=== PATIENT | female | born 2000 | race African-American/Black ===

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

== ENCOUNTER 2019-04-03 12:36 | Emergency (ER) | payer OTHER, SELFPAY ==
[~2019-04-03] VITALS: Ht 162.6 cm; Wt 49.3 kg
[2019-04-03] MEDS ORDERED: NEXP1IMP (12:45)
[2019-04-03] MEDS ORDERED: MACR100C43 PO (14:37)
[2019-04-03 14:48] VITALS: BP 121/65
== END 2019-04-03 14:49 | disposition home or self-care (01) ==
LOC: M ED 12:36
DX: N39.0 Urinary tract infection, site not specified (principal); Z88.0 Allergy status to penicillin; Z79.3 Long term (current) use of hormonal contraceptives; Z79.899 Other long term (current) drug therapy

== ENCOUNTER 2019-04-15 10:04 | Emergency (ER) | payer OTHER ==
[~2019-04-15] VITALS: Ht 162.6 cm; Wt 49.2 kg
[~2019-04-15 10:04] MED LIST changes: +MACR100C43 PO; +NEXP1IMP
[2019-04-15] MEDS ORDERED: KETOROLAC TROMETHAMINE 10 MG TAB PO ONE (12:15)
[2019-04-15] MEDS ORDERED: diazePAM 5 MG TAB PO ONE (12:15)
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
--- NOTE | 2019-04-15 13:20 | REP ---
Left shoulder three views : There is no fracture or dislocation. Mineralization and joint spaces are normal. There are no calcifications or foreign bodies. Impression: Negative left shoulder . Electronically Signed by Davey Hernandez MD 04/15/2019 01:11 P
--- NOTE | 2019-04-15 13:22 | REP ---
Right knee five the : There is no fracture or dislocation. Mineralization and joint spaces are normal. There are no calcifications or foreign bodies. There is no effusion. Impression: Negative Right knee . Electronically Signed by Davey Hernandez MD 04/15/2019 01:13 P
[2019-04-15] MEDS ORDERED: CYCL5TAB PO (13:37)
[2019-04-15 13:58] VITALS: BP 106/67
== END 2019-04-15 14:10 | disposition home or self-care (01) ==
LOC: M ED 10:04
DX: S80.01XA Contusion of right knee, initial encounter (principal); S49.92XA Unspecified injury of left shoulder and upper arm, initial encounter; M62.838 Other muscle spasm; Y04.0XXA Assault by unarmed brawl or fight, initial encounter; Y92.019 Unspecified place in single-family (private) house as the place of occurrence of the external cause; Y07.01 Husband, perpetrator of maltreatment and neglect; J45.909 Unspecified asthma, uncomplicated; R56.9 Unspecified convulsions; Z88.0 Allergy status to penicillin; Z79.899 Other long term (current) drug therapy

== ENCOUNTER 2019-11-03 23:46 | Emergency (ER) | payer OTHER ==
[2019-11-04 00:12] VITALS: BP 118/67
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
== END 2019-11-04 20:34 | disposition home or self-care (01) ==
LOC: EDBD 23:46 → M ED 23:46
DX: S00.93XA Contusion of unspecified part of head, initial encounter (principal); S50.01XA Contusion of right elbow, initial encounter; S80.11XA Contusion of right lower leg, initial encounter; Y04.8XXA Assault by other bodily force, initial encounter; Y92.019 Unspecified place in single-family (private) house as the place of occurrence of the external cause; R56.9 Unspecified convulsions; Z88.0 Allergy status to penicillin; Z79.899 Other long term (current) drug therapy

== ENCOUNTER 2019-11-25 10:04 | Emergency (ER) | payer OTHER ==
[~2019-11-25] VITALS: Ht 165.1 cm; Wt 50.5 kg
[2019-11-25] MEDS ORDERED: TRIAMCINOLONE ACET 0.1% OINTMENT 15 GM TOP ONE (11:00)
[2019-11-25] MEDS ORDERED: dexameTHASONE 20MG/5ML VIAL (J1100 PER 1MG) IM ONE (11:00)
--- NOTE | 2019-11-25 12:06 | REPVR ---
PROCEDURE INFORMATION: Exam: US Abdomen; Limited Exam date and time: 11/25/2019 11:32 AM Age: 19 years old Clinical indication: Abdominal pain; Periumbilical; Additional info: Pain/tenderness to umbilicus R/O hernia. Umbilicus is raised and discolored TECHNIQUE: Imaging protocol: US abdomen. Real time ultrasound with image documentation. Limited exam focused on the region of clinical interest. COMPARISON: None provided. FINDINGS: Soft tissues: No abdominal wall defect or herniation was identified in the region of the umbilicus. IMPRESSION: No umbilical hernia identified. May consider better characterization of the soft tissues with contrast-enhanced CT as clinically appropriate. Electronically signed by: Dago Martines On 11/25/2019 12:06:02 PM
[2019-11-25] MEDS ORDERED: TRIA1OI80 TOP (12:23)
[2019-11-25] MEDS ORDERED: MEDR4PAK PO (12:23)
[2019-11-25 12:32] VITALS: BP 117/70
== END 2019-11-25 12:38 | disposition home or self-care (01) ==
LOC: M ED 10:04
DX: R21 Rash and other nonspecific skin eruption (principal); Z88.0 Allergy status to penicillin; Z79.899 Other long term (current) drug therapy
CPT/HCPCS: 76705; 81001; 87086; 96372; 99283; J1100

== ENCOUNTER → 2020-01-14 | Outpatient (REF) | payer OTHER, SELFPAY ==
[~2020-01-14] MED LIST changes: +MEDR4PAK PO; +TRIA1OI80 TOP
== END ==
LOC: M LAB REF 18:58
PROVIDERS: ATTEND Physician Assistant
DX: D48.5 Neoplasm of uncertain behavior of skin (principal)

== ENCOUNTER 2020-01-26 11:41 | Observation (INO) | payer OTHER, SELFPAY ==
[~2020-01-26] VITALS: Ht 160 cm; Wt 53.5 kg
[2020-01-26 12:15] LABS: BASO % 0.5 % (0.0-1.0); EOS # 0.1 10^3/uL (0.0-0.5); EOS % 1.6 % (0.0-3.0); HEMATOCRIT 39.8 % (36.0-47.0); HEMOGLOBIN 12.5 g/dl (12.0-15.5); LYMPH # 1.9 10^3/uL (1.5-5.0); LYMPH % 48.3 % (24.0-44.0); MEAN CORPUSCULAR HGB CONC 31.4 g/dl (32.0-36.5); MONO # 0.3 10^3/uL (0.0-0.8); NEUTROPHILS # 1.6 10^3/uL (1.5-8.5); NEUTROPHILS % 41.3 % (36.0-66.0); PLATELET COUNT, AUTOMATED 193 10^3/uL (150-450); RED BLOOD COUNT 4.47 10^6/uL (4.00-5.40); WHITE BLOOD COUNT 3.9 10^3/uL (4.0-10.0)
[2020-01-26] MEDS ORDERED: HYDR200T3 PO (12:19)
[2020-01-26 12:37] LABS: HCG, SERUM QUALITATIVE NEGATIVE (NEGATIVE)
[2020-01-26 13:26] LABS: CPK CREATINE PHOSPHOKINASE 139 U/L (26-192); ETHYL ALCOHOL (ETHANOL) < 0.003 % (0.000-0.010)
[2020-01-26 14:36] LABS: AMPHETAMINES LEVEL URINE NEGATIVE (NEGATIVE); BARBITURATES URINE NEGATIVE (NEGATIVE); BENZODIAZEPINES URINE NEGATIVE (NEGATIVE); CANNABINOIDS URINE POSITIVE (NEGATIVE); COCAINE METABOLITE URINE NEGATIVE (NEGATIVE); METHADONE URINE NEGATIVE (NEGATIVE); OPIATES URINE NEGATIVE (NEGATIVE); PHENCYCLIDINE URINE NEGATIVE (NEGATIVE)
[2020-01-26] MEDS ORDERED: NS 1,000 ML IV ONE (17:00)
[2020-01-26] MEDS ORDERED: ACETAMINOPHEN TAB 650MG DOSE (2X325MG) PO ONE (17:00)
--- NOTE | 2020-01-26 17:27 | REPVR ---
PROCEDURE INFORMATION: Exam: CT Head Without Contrast Exam date and time: 01/26/2020 5:10 PM Age: 19 years old Clinical indication: Syncope and collapse TECHNIQUE: Imaging protocol: Computed tomography of the head without contrast. Radiation optimization: All CT scans at this facility use at least one of these dose optimization techniques: automated exposure control; mA and/or kV adjustment per patient size (includes targeted exams where dose is matched to clinical indication); or iterative reconstruction. COMPARISON: CT Head without contrast 11/04/2019 12:51 AM FINDINGS: Brain: No mass, mass effect, parenchymal hemorrhage, or evidence of large acute infarct. No asymmetric sulcal effacement or loss of the harper-white interface. No extra-axial hemorrhage. Cerebral ventricles: There is no hydrocephalus. Basal cisterns are patent. No midline shift. Bones/joints: Unremarkable. No acute fracture. Paranasal sinuses: Visualized sinuses are unremarkable. No fluid levels. Mastoid air cells: Visualized mastoid air cells are well aerated. Soft tissues: Unremarkable. IMPRESSION: No acute intracranial abnormality. Electronically signed by: Funmilayo Solorzano On 01/26/2020 17:26:57 PM
[2020-01-26] MEDS ORDERED: NS 1,000 ML IV SCH (17:30)
--- NOTE | 2020-01-26 17:34 | HPEPDOC ---
[facility] Medical History & Physical Date of Admission Jan 26, 2020 Date of Service: Jan 26, 2020 History and Physical CHIEF COMPLAINT: SYNCOPE HISTORY OF PRESENT ILLNESS: 19F presents for possible syncopal episode occurred today while at [employer]. She stated she was sitting down, fell dizzy, then slouched over and fell down with possible head trauma. She had a typical evening the night before, and a typical morning. History goes back about one week with new medications she had been receiving for her rash/lichen planus, most recently started on Plaquenil 4 days ago. She feels that since this medication started, she has not been feeling well, with no specific details. She denies any other medical complaints. She denies chest pain, shortness of breath, headaches, N/V/D. PAST MEDICAL HISTORY: #lichen planus ALLERGIES: Please see below. REVIEW OF SYSTEMS: Negative except as per HPI. HOME MEDICATIONS: Please see below. PHYSICAL EXAMINATION: VITAL SIGNS: See below General: NAD, lying comfortably in bed, diffuse rash HEENT: NC/AT Lungs: CTA B/L Heart: +S1S2, RRR Abd: soft, NT, +BS Ext: no edema LABORATORY DATA: See below. MICROBIOLOGY: Please see below. A/P: 19F for possible syncopal episode, likely secondary to medications, no past medical history. #possible syncope - monitor on telemetry - IV fluids - discussed with dermatology regarding her treatment meds for lichen planus - ok to resume plaquenil, d/c remainder #lichen planus - as per derm #DVT prophylaxis - not indicated Vital Signs Vital Signs Date Time Temp Pulse Resp B/P (MAP) Pulse Ox O2 Delivery O2 Flow Rate FiO2 01/26/20 14:15 74 14 111/60 (77) 100 Room Air 01/26/20 11:52 98.2 Laboratory Data Labs 24H Laboratory Tests 2 01/26/20 12:05: Immature Granulocyte % (Auto) 0.3, Neutrophils (%) (Auto) 41.3, Lymphocytes (%) (Auto) 48.3H, Monocytes (%) (Auto) 8.0H, Eosinophils (%) (Auto) 1.6, Basophils (%) (Auto) 0.5, Neutrophils # (Auto) 1.6, Lymphocytes # (Auto) 1.9, Monocytes # (Auto) 0.3, Eosinophils # (Auto) 0.1, Basophils # (Auto) 0.0, Nucleated Red Blood Cells % (auto) 0.0, Total Creatine Kinase 139, Human Chorionic Gonadotropin, Qual NEGATIVE, Ethyl Alcohol Level < 0.003 01/26/20 12:06: POC Glucose (Misc Panel) 88, POC Sodium (Misc Panel) 140, POC Potassium (Misc Panel) 3.7, POC Chloride (Misc Panel) 105, POC Total CO2 (Misc Panel) 25.0, POC Blood Urea Nitrogen (Misc Panel 7L, POC Ionized Calcium (Misc Panel) 4.8, POC Creatinine (Misc Panel) 0.7, POC Hematocrit (Misc Panel) 41.0 01/26/20 12:08: POC Beta HCG, Quantitative < 5.0 01/26/20 13:37: Urine Opiates Screen NEGATIVE, Urine Methadone Screen NEGATIVE, Urine Barbiturates Screen NEGATIVE, Urine Phencyclidine Screen NEGATIVE, Urine Amphetamines Screen NEGATIVE, Urine Benzodiazepines Screen NEGATIVE, Urine Cocaine Metabolite Screen NEGATIVE, Urine Cannabinoids Screen POSITIVEH CBC/BMP Laboratory Tests 01/26/20 12:05 Home Medications Scheduled Triamcinolone Acet (Triamcinolone Acetonide 0.1% Crm) 80 Gm Cream..g., 1 APPLIC TOP BID APPLY TO TRUNK AND EXTREMITIES Miscellaneous Medications Hydroxychloroquine Sulfate (Hydroxychloroquine Sulfate) 200 Mg Tablet, 200 MG PO Allergies Coded Allergies: Penicillins (Verified Allergy, Intermediate, rash, 04/03/19) A-FIB/CHADSVASC A-FIB History Current/History of A-Fib/PAF?: No ILDA WASHBURN MD Jan 26, 2020 17:34
[2020-01-26] MEDS ORDERED: LEVOTAB10 PO (17:52)
[2020-01-26] MEDS ORDERED: HYDR-3363 PO (17:52)
[2020-01-26] MEDS ORDERED: DOXE10CA PO (17:52)
[2020-01-26] MEDS ORDERED: TRIA1CR80 TOP (17:53)
[2020-01-26 21:00] VITALS: BP 121/77
[2020-01-26] MEDS: TRIAMCINOLONE ACET 0.1% CREAM 80 GM TOP SCH (21:00)
[2020-01-26] MEDS ORDERED: diphenhydrAMINE 25MG CAP PO ONE (22:15)
[2020-01-26] MEDS ORDERED: IBUPROFEN 600MG TAB PO ONE (22:15)
[2020-01-27] VITALS: BP 109/58
[2020-01-27 04:00] VITALS: BP 116/69
[2020-01-27 06:26] LABS: HEMOGLOBIN 11.8 g/dl (12.0-15.5); MEAN CORPUSCULAR HEMOGLOBIN 28.6 pg (27.0-33.0); MEAN CORPUSCULAR HGB CONC 31.9 g/dl (32.0-36.5); MEAN CORPUSCULAR VOLUME 89.6 fl (80.0-96.0); PLATELET COUNT, AUTOMATED 178 10^3/uL (150-450); RED BLOOD COUNT 4.13 10^6/uL (4.00-5.40); WHITE BLOOD COUNT 4.5 10^3/uL (4.0-10.0)
[2020-01-27 07:02] LABS: ALBUMIN 3.1 GM/DL (3.2-5.2); ALT/SGPT 18 U/L (12-78); BILIRUBIN,TOTAL 0.5 MG/DL (0.2-1.0); BLOOD UREA NITROGEN 9 MG/DL (7-18); CALCIUM LEVEL 8.2 MG/DL (8.5-10.1); CARBON DIOXIDE LEVEL 24 MEQ/L (21-32); CHLORIDE LEVEL 109 MEQ/L (98-107); CREATININE FOR GFR 0.78 MG/DL (0.55-1.30); GLUCOSE, FASTING 85 MG/DL (70-100); POTASSIUM SERUM 3.8 MEQ/L (3.5-5.1); SODIUM LEVEL 138 MEQ/L (136-145); TOTAL PROTEIN 6.3 GM/DL (6.4-8.2)
[2020-01-27 08:00] VITALS: BP 115/53
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
[2020-01-27] MEDS: TRIAMCINOLONE ACET 0.1% CREAM 80 GM TOP SCH (08:54)
[2020-01-27] MEDS ORDERED: INFLUENZA QUADRIVALENT PF VACCINE 0.5ML SYRINGE IM ONE (09:00)
[2020-01-27] MEDS ORDERED: IBUPROFEN 400 MG TAB PO ONE (09:00)
--- NOTE | 2020-01-27 10:19 | ECGEPIP ---
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
== END 2020-01-27 11:47 | disposition home or self-care (01) ==
LOC: EDBD 11:41 → M ED 11:41 → M ED INP 11:42 → M PCU 20:42
PROVIDERS: ADMIT Internal Medicine; ATTEND Internal Medicine
DX: R55 Syncope and collapse (principal); L43.9 Lichen planus, unspecified; Z79.899 Other long term (current) drug therapy; Z88.0 Allergy status to penicillin; F17.218 Nicotine dependence, cigarettes, with other nicotine-induced disorders
CPT/HCPCS: 36415; 70450; 80047; 80053; 80307; 82550; 84702; 84703; 85025; 85027; 90471; 90686; 93005; 93041; 94760; 96361; 96374; 99285; G0480; U0002

== ENCOUNTER → 2020-01-28 | Outpatient (REF) | payer OTHER, SELFPAY ==
[~2020-01-28] MED LIST changes: +DOXE10CA PO; +HYDR-3363 PO; +HYDR200T3 PO; +LEVOTAB10 PO; +TRIA1CR80 TOP
[2020-01-28 15:48] LABS: HEPATITIS A ANTIBODY IGM NEGATIVE (NEGATIVE); HEPATITIS B CORE ANTIBODY IGM NEGATIVE (NEGATIVE); HEPATITIS B SURFACE ANTIGEN NEGATIVE (NEGATIVE)
== END ==
LOC: M SFHCPLAZ 12:08
PROVIDERS: ATTEND Physician Assistant
DX: L43.9 Lichen planus, unspecified (principal)

== ENCOUNTER 2020-04-21 02:37 | Emergency (ER) | payer MEDICAID, OTHER, SELFPAY ==
[~2020-04-21] VITALS: Ht 162.6 cm; Wt 54.3 kg
[2020-04-21] MEDS ORDERED: LIDOCAINE VISCOUS 2% SOLN 15ML UDC SS ONE (03:30)
[2020-04-21 04:15] VITALS: BP 132/67
== END 2020-04-21 04:48 | disposition home or self-care (01) ==
LOC: M ED 02:37
DX: J02.9 Acute pharyngitis, unspecified (principal); Z88.0 Allergy status to penicillin

== ENCOUNTER 2020-06-21 16:12 | Emergency (ER) | payer MEDICAID, OTHER ==
[~2020-06-21] VITALS: Ht 162.6 cm; Wt 50.4 kg
[2020-06-21 17:39] LABS: BASO % 0.3 % (0.0-1.0); EOS # 0.1 10^3/uL (0.0-0.5); EOS % 0.7 % (0.0-3.0); HEMATOCRIT 41.5 % (36.0-47.0); HEMOGLOBIN 13.6 g/dl (12.0-15.5); LYMPH % 44.4 % (24.0-44.0); MEAN CORPUSCULAR HEMOGLOBIN 29.1 pg (27.0-33.0); MEAN CORPUSCULAR HGB CONC 32.8 g/dl (32.0-36.5); MEAN CORPUSCULAR VOLUME 88.9 fl (80.0-96.0); MONO # 0.5 10^3/uL (0.0-0.8); MONO % 7.3 % (2.0-8.0); NEUTROPHILS # 3.1 10^3/uL (1.5-8.5); PLATELET COUNT, AUTOMATED 172 10^3/uL (150-450); RED BLOOD COUNT 4.67 10^6/uL (4.00-5.40); WHITE BLOOD COUNT 6.7 10^3/uL (4.0-10.0)
[2020-06-21 19:03] LABS: CHLAMYDIA DNA AMPLIFICATION NEGATIVE (NEGATIVE); GC DNA AMPLIFICATION NEGATIVE (NEGATIVE)
--- NOTE | 2020-06-21 19:32 | REP ---
INDICATION: pelvic pain, first trimester. Beta HCG 700. COMPARISON: 12/08/2018. TECHNIQUE: Real-time sonographic evaluation of pelvis performed utilizing transabdominal and endovaginal technique. FINDINGS: The uterus measures 7.3 x 3.9 x 5.0 cm. The endometrial echo complex measures 7 mm in AP dimension. There is no endometrial fluid collection or gestational sac. The ovaries are normal in size and echotexture, right ovary measuring 3.9 x 2.7 x 2.2 cm and left ovary 2.1 x 0.9 x 2.3 cm. A complex hemorrhagic dominant follicle in the right ovary measures 2.3 x 2.1 x 1.9 cm. Blood flow is seen in each ovary with duplex Doppler evaluation, with no torsion. There is no other evidence of adnexal mass. There is trace free fluid in the cul-de-sac. IMPRESSION: Empty uterus with no intrauterine gestational sac. Hemorrhagic dominant follicle right ovary 2.3 cm. No torsion. No other evidence of adnexal mass. Trace free fluid. Differential diagnosis would include very early intrauterine , missed AB, or ectopic . Suggest correlation with serial quantitative beta HCG values, and follow-up ultrasound if necessary. <Electronically signed by Davey Plascencia > 06/21/203
[2020-06-21 19:59] VITALS: BP 120/67
== END 2020-06-21 20:00 | disposition home or self-care (01) ==
LOC: M ED 16:12
DX: O26.891 Other specified pregnancy related conditions, first trimester (principal); R10.2 Pelvic and perineal pain; Z88.0 Allergy status to penicillin; Z3A.00 Weeks of gestation of pregnancy not specified

== ENCOUNTER → 2020-07-14 | Outpatient (REF) | payer OTHER ==
[2020-07-14 18:27] LABS: HEMOGLOBIN 12.3 g/dl (12.0-15.5); MEAN CORPUSCULAR HEMOGLOBIN 28.7 pg (27.0-33.0); MEAN CORPUSCULAR HGB CONC 32.4 g/dl (32.0-36.5); MEAN CORPUSCULAR VOLUME 88.8 fl (80.0-96.0); PLATELET COUNT, AUTOMATED 179 10^3/uL (150-450); RED BLOOD COUNT 4.28 10^6/uL (4.00-5.40); WHITE BLOOD COUNT 6.6 10^3/uL (4.0-10.0)
[2020-07-14 19:28] LABS: SICKLE CELL SCREEN NEGATIVE (NEGATIVE)
[2020-07-14 19:47] LABS: HIV 1&2 SCREEN CENTAUR NEGATIVE (NEGATIVE)
== END ==
LOC: M PLALAB 15:24
PROVIDERS: ATTEND Advanced Practice Midwife
DX: Z34.91 Encounter for supervision of normal pregnancy, unspecified, first trimester (principal); Z3A.01 Less than 8 weeks gestation of pregnancy

== ENCOUNTER 2020-08-04 15:47 | Emergency (ER) | payer OTHER ==
[~2020-08-04] VITALS: Ht 162.6 cm; Wt 52.7 kg
[2020-08-04] MEDS ORDERED: ACET325C5 PO (15:53)
[2020-08-04] MEDS ORDERED: PRENTAB53 PO (15:53)
[2020-08-04] MEDS: PROPARACAINE 0.5% OPHTH SOL 15ML OS ONE (18:05)
[2020-08-04] MEDS: FLUORESCEIN OPHTH 1 MG STRIP OS ONE (18:05)
[2020-08-04] MEDS ORDERED: CIPR0.3S6 OP (19:06)
[2020-08-04] MEDS ORDERED: MOXI0.5S OP (19:15)
[2020-08-04 19:41] VITALS: BP 106/66
== END 2020-08-04 20:10 | disposition home or self-care (01) ==
LOC: M ED 15:47
DX: H10.32 Unspecified acute conjunctivitis, left eye (principal); Z88.0 Allergy status to penicillin

== ENCOUNTER → 2020-08-11 | Outpatient (REF) | payer OTHER ==
[~2020-08-11] MED LIST changes: +ACET325C5 PO; +CIPR0.3S6 OP; +MOXI0.5S OP; +PRENTAB53 PO
== END ==
LOC: M SFHCWAGY 13:52
PROVIDERS: ATTEND Advanced Practice Midwife
DX: Z34.91 Encounter for supervision of normal pregnancy, unspecified, first trimester (principal); Z3A.00 Weeks of gestation of pregnancy not specified

== ENCOUNTER → 2020-09-08 | Outpatient (CLI) | payer OTHER | LOC: M PLALAB 15:13 | PROVIDERS: ATTEND Advanced Practice Midwife | DX: Z34.82 Encounter for supervision of other normal pregnancy, second trimester (principal) ==

== ENCOUNTER 2020-10-01 16:54 | Emergency (ER) | payer OTHER ==
[~2020-10-01] VITALS: Ht 162.6 cm; Wt 54.5 kg
[2020-10-01] MEDS ORDERED: NS 1,000 ML IV ONE (17:35)
[2020-10-01 18:16] LABS: BASO % 0.3 % (0.0-1.0); EOS % 0.5 % (0.0-3.0); HEMATOCRIT 33.8 % (36.0-47.0); LYMPH # 1.4 10^3/uL (1.5-5.0); MEAN CORPUSCULAR HEMOGLOBIN 29.1 pg (27.0-33.0); MEAN CORPUSCULAR HGB CONC 32.5 g/dl (32.0-36.5); MEAN CORPUSCULAR VOLUME 89.4 fl (80.0-96.0); MONO # 0.6 10^3/uL (0.0-0.8); MONO % 10.5 % (2.0-8.0); NEUTROPHILS # 3.6 10^3/uL (1.5-8.5); NEUTROPHILS % 63.5 % (36.0-66.0); PLATELET COUNT, AUTOMATED 124 10^3/uL (150-450); RED BLOOD COUNT 3.78 10^6/uL (4.00-5.40); WHITE BLOOD COUNT 5.7 10^3/uL (4.0-10.0)
[2020-10-01 18:43] LABS: BLOOD UREA NITROGEN 8 MG/DL (7-18); CALCIUM LEVEL 7.6 MG/DL (8.5-10.1); CARBON DIOXIDE LEVEL 28 MEQ/L (21-32); CHLORIDE LEVEL 109 MEQ/L (98-107); CREATININE FOR GFR 0.58 MG/DL (0.55-1.30); FREE T4 0.72 NG/DL (0.76-1.46); GLOMERULAR FILTRATION RATE > 60.0 (>60); GLUCOSE, FASTING 76 MG/DL (70-100); POTASSIUM SERUM 3.6 MEQ/L (3.5-5.1); SODIUM LEVEL 139 MEQ/L (136-145); THYROID STIMULATING HORMONE 0.581 uIU/ML (0.358-3.740)
[2020-10-01 19:00] VITALS: BP 98/58
--- NOTE | 2020-10-03 21:09 | ECGEPIP ---
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
== END 2020-10-01 19:12 | disposition home or self-care (01) ==
LOC: EDBD 16:54 → M ED 16:54
DX: O26.91 Pregnancy related conditions, unspecified, first trimester (principal); R42 Dizziness and giddiness; O99.019 Anemia complicating pregnancy, unspecified trimester; D64.9 Anemia, unspecified; Z88.0 Allergy status to penicillin

== ENCOUNTER → 2020-10-16 | Outpatient (CLI) | payer OTHER ==
--- NOTE | 2020-10-16 08:37 | REP ---
INDICATION: ANATOMY. COMPARISON: 06/21/2020. TECHNIQUE: Multiple ultrasonographic images of the gravid uterus. FINDINGS: There is a single intrauterine gestation. position is variable. heart rate is 139 beats per minute. The placenta is posterior with grade 0 maturity. There is no placenta previa. The umbilical cord inserts centrally on to the placenta. There is a three-vessel cord. The cervix measures 3.2 cm length. Amniotic fluid volume subjectively is normal. The composite ultrasound gestational age by today's ultrasound is 20 weeks 2 days with an ALEJANDRA of 03/03/2021. The LMP is unknown. The estimated weight is 338 g/0 lb, 11 oz. This is less than the 3rd percentile for 21 weeks 2 days. The following anatomic structures are identified and are unremarkable: Cranium, cavum septum pellucidum, falx, intracranial ventricles, cerebellum, cisterna magna, nuchal fold, facial profile, orbits, upper lip, lungs, cardiac rhythm, 4 cardiac left and right ventricular outflow tracts, diaphragm, stomach, abdominal wall, right and left kidneys, bladder, spine, right and left upper extremities, right left lower extremities and 3 vessel cord. There are small choroid plexus cysts bilaterally measuring up to 3 mm. There are 2 echogenic foci in the cardiac left ventricle, usually artifact from the chorda tendineae. IMPRESSION: Twenty week 2 day viable intrauterine gestation as described above. <Electronically signed by Davey Hernandez > 10/16/20 [id number]
== END ==
LOC: M WHC 07:00
PROVIDERS: ATTEND Advanced Practice Midwife
DX: O35.0XX1 Maternal care for (suspected) central nervous system malformation in fetus, fetus 1 (principal); Z3A.31 31 weeks gestation of pregnancy

== ENCOUNTER → 2020-11-20 | Outpatient (CLI) | payer OTHER, SELFPAY ==
[~2020-11-20] MED LIST changes: +APAP325T4 PO; +LEVO25TA5; +ONDA4TAB6 PO
--- NOTE | 2020-11-20 12:41 | REP ---
INDICATION: F/U ANATOMY. COMPARISON: 10/16/2020. TECHNIQUE: Real-time sonographic evaluation of the gravid uterus performed. FINDINGS: Estimated gestational age is26 weeks 2 days, EDC 02/24/2021. Today's measurements indicate appropriate growth. Presentation: Breech Placenta posterior, grade 1, without evidence of placenta previa. heart rate is recorded at 147 beats per minute. Amniotic fluid is subjectively normal. Closed cervical length is measured at 3.0 cm. Biometry chart: BPD: 61 mm, 24 weeks 6 days, 21st percentile. HC: 226 mm, 24 weeks 5 days, 15th percentile AC: 195 mm, 24 weeks 1 days, 7th percentile Femur length: 44 mm, 24 weeks 2 days, 8th percentile HC to AC ratio: 1.16, normal range 1.00-1.19. Estimated weight: 682g, less than 3rd percentile. anatomy: Cranium: Grossly normal Lateral Ventricles/Choroid Plexus: Choroid plexus cyst has resolved. Posterior Fossa/Cerebellum: Grossly normal Nose/lips/profile: Grossly normal Four chamber heart: Grossly normal Right ventricular outflow tract: Grossly normal Left ventricular outflow tract: 2 echogenic foci likely related to chordae tendineae. Left-sided stomach: Grossly normal Kidneys: Grossly normal Bladder: Grossly normal Cord Insertion: Grossly normal 3 vessel cord: Grossly normal Spine: Previously seen. IMPRESSION: Viable single intrauterine gestation as above. <Electronically signed by Davey Plascencia > 11/20/20 [id number]
== END ==
LOC: M WHC 10:50
PROVIDERS: ATTEND Advanced Practice Midwife
DX: Z34.92 Encounter for supervision of normal pregnancy, unspecified, second trimester (principal); Z3A.26 26 weeks gestation of pregnancy

== ENCOUNTER → 2020-12-04 | Outpatient (CLI) | payer OTHER, SELFPAY ==
[2020-12-04 18:00] LABS: HEMATOCRIT 37.1 % (36.0-47.0); HEMOGLOBIN 12.1 g/dl (12.0-15.5); MEAN CORPUSCULAR HEMOGLOBIN 29.2 pg (27.0-33.0); MEAN CORPUSCULAR HGB CONC 32.6 g/dl (32.0-36.5); MEAN CORPUSCULAR VOLUME 89.6 fl (80.0-96.0); PLATELET COUNT, AUTOMATED 126 10^3/uL (150-450); RED BLOOD COUNT 4.14 10^6/uL (4.00-5.40); WHITE BLOOD COUNT 9.6 10^3/uL (4.0-10.0)
[2020-12-04 20:16] LABS: GC DNA AMPLIFICATION NEGATIVE (NEGATIVE)
== END ==
LOC: M PLALAB 13:36
PROVIDERS: ATTEND Advanced Practice Midwife
DX: Z34.92 Encounter for supervision of normal pregnancy, unspecified, second trimester (principal); Z3A.24 24 weeks gestation of pregnancy

== ENCOUNTER 2020-12-12 15:49 | Emergency (ER) | payer MEDICAID, OTHER, SELFPAY ==
[~2020-12-12] VITALS: Ht 162.6 cm; Wt 56.8 kg
[~2020-12-12 15:49] MED LIST changes: -APAP325T4 PO; -LEVO25TA5; -ONDA4TAB6 PO
[2020-12-12] MEDS ORDERED: APAP325T4 PO (15:58)
[2020-12-12] MEDS ORDERED: LEVO25TA5 (15:58)
[2020-12-12] MEDS ORDERED: ONDANSETRON 4 MG ORAL DISINTEGRATING TAB PO ONE (17:20)
[2020-12-12] MEDS ORDERED: ACETAMINOPHEN 500 MG TAB PO ONE (17:20)
[2020-12-12] MEDS ORDERED: ONDA4TAB6 PO (18:55)
[2020-12-12 19:05] VITALS: BP 115/60
== END 2020-12-12 19:02 | disposition home or self-care (01) ==
LOC: M ED 15:49
DX: O21.9 Vomiting of pregnancy, unspecified (principal); O26.893 Other specified pregnancy related conditions, third trimester; R51.9 Headache, unspecified; R50.9 Fever, unspecified; Z88.0 Allergy status to penicillin; Z79.899 Other long term (current) drug therapy; Z3A.29 29 weeks gestation of pregnancy
CPT/HCPCS: 87798; 99283; Q0162

== ENCOUNTER → 2021-01-05 | Outpatient (CLI) | payer OTHER, SELFPAY ==
[~2021-01-05] MED LIST changes: +APAP325T4 PO; +LEVO25TA5; +ONDA4TAB6 PO
--- NOTE | 2021-01-05 15:52 | REP ---
INDICATION: NONREACTIVE NST. COMPARISON: 11/20/2020. TECHNIQUE: Real-time sonographic evaluation of gravid uterus. FINDINGS: There is a single living intrauterine gestation. The estimated gestational age is reportedly 32 weeks 6 days, EDC 02/24/2021. position cephalic. Placenta posterior and grade 1 with no previa. heart rate 146 beats per minute. Amniotic fluid within normal limits. WILMER 18.5, normal 8.3-24.5. Biophysical profile score 8/8. SD ratio umbilical artery 2.43, normal 1.80-3.78. RI 0.59, normal 0.48-0.74. Cervix is closed and measures 3.6 cm in length. IMPRESSION: Biophysical profile score 8/8. <Electronically signed by Davey Plascencia > 01/05/21 1222
== END ==
LOC: M WHC 15:08
PROVIDERS: ATTEND Obstetrics & Gynecology
DX: O28.8 Other abnormal findings on antenatal screening of mother (principal)

== ENCOUNTER 2021-02-22 20:39 | Inpatient (IN) | payer SELFPAY ==
[~2021-02-22] VITALS: Ht 162.6 cm; Wt 57.3 kg
[2021-02-22 21:05] VITALS: BP 141/60
[2021-02-22] MEDS ORDERED: OXYTOCIN 30 UNITS IN 0.9% NaCl 500ML IV BAG (J2590) As Ordered ONE (21:09)
[2021-02-22 21:21] VITALS: BP 144/67
[2021-02-22] MEDS ORDERED: OXYTOCIN DRIP 30 UNITS in IV 1 EA IV PRN (21:35)
[2021-02-22] MEDS ORDERED: TRANEXAMIC ACID INJection 1,000 MG in NS 100 ML IV PRN (21:35)
[2021-02-22] MEDS ORDERED: LIDOCAINE 1% MDV 20ML VIAL INFIL PRN (21:35)
[2021-02-22 21:36] VITALS: BP 130/76
[2021-02-22] MEDS ORDERED: KETOROLAC 30 MG/ML 1ML VIAL IV ONE (21:40)
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
[2021-02-22 21:51] VITALS: BP 138/86
[2021-02-22 21:52] LABS: HEMATOCRIT 37.9 % (36.0-47.0); HEMOGLOBIN 12.2 g/dl (12.0-15.5); MEAN CORPUSCULAR HEMOGLOBIN 29.7 pg (27.0-33.0); MEAN CORPUSCULAR HGB CONC 32.2 g/dl (32.0-36.5); MEAN CORPUSCULAR VOLUME 92.2 fl (80.0-96.0); PLATELET COUNT, AUTOMATED 176 10^3/uL (150-450); RED BLOOD COUNT 4.11 10^6/uL (4.00-5.40); WHITE BLOOD COUNT 15.6 10^3/uL (4.0-10.0)
[2021-02-22 22:05] VITALS: BP 122/86
[2021-02-22] MEDS ORDERED: OXYTOCIN INJ 10 UNITS/ML VIAL (J2590) IM ONE (22:05)
--- NOTE | 2021-02-22 22:37 | DNPDOC ---
[facility] Delivery Note Delivery Note DATE OF DELIVERY: 02/22/21 at 2055 PREDELIVERY DIAGNOSIS: 38-6/7 weeks' gestation and labor. POST DELIVERY DIAGNOSIS: Delivered. PROCEDURE: Spontaneous vaginal delivery. PODIATRY TEACHER: Madi Pulido CNM, ESTHER ANESTHESIA: none. ESTIMATED BLOOD LOSS: 200 mL. FINDINGS: 5 pounds; 2260 grams; female infant, Score 9/9, IUGR, limited care, GBS+ untreated. DELIVERY SUMMARY: Diary is a 20-year-old female who is now a who p resented to labor and delivery in active labor. She reports she spontaneously ruptured clear fluids at 1930. She arrived via ambulance and was found to be fully dilated. She pushed to a living female in SANJAY position with restitution to LOT. The anterior shoulder delivered with ease and the corpus immediately followed. The baby was placed [id number] active and crying. The cord was clamped after pulsation ceased and cut by the FOB. The placenta delivered spontaneously and intact at 2100. IM Pitocin was given prior to delivery of the placenta. The placenta appeared small. The uterus was boggy so an IV was started and IV Pitocin bolused. Uterine hemostasis was achieved. The vagina, cervix, and perineum was inspected and found to be intact. Mom plans to breastfeed. They are naming her Angel Luis. Both mom and baby are in stable condition.All counts of instruments and sponges are correct. MADI PULIDO CNM Feb 22, 2021 22:37
[2021-02-22] MEDS ORDERED: IBUPROFEN 600MG TAB PO PRN (22:55)
[2021-02-22] MEDS ORDERED: MEASLES,MUMPS,RUBELLA VACCINE INJ (MMR-II) (90707) SC SCH (22:55)
[2021-02-22] MEDS ORDERED: RHOGAM 300 MCG (1500 IU) INJ (J2790) IM SCH (22:55)
[2021-02-22] MEDS ORDERED: METHYLERGONOVINE MALEATE 0.2 MG TAB PO PRN (22:55)
[2021-02-22] MEDS ORDERED: ANUSOL HC CREAM 30GM TOP PRN (22:55)
[2021-02-22] MEDS ORDERED: DIBUCAINE 1% OINTMENT 30GM TOP PRN (22:55)
[2021-02-22] MEDS ORDERED: ACETAMINOPHEN TAB 650MG DOSE (2X325MG) PO PRN (22:55)
[2021-02-22] MEDS ORDERED: DOCUSATE SODIUM 100MG CAPSULE PO PRN (22:55)
[2021-02-23 00:05] VITALS: BP 134/73
[2021-02-23 05:15] LABS: GC DNA AMPLIFICATION NEGATIVE (NEGATIVE)
[2021-02-23 05:44] VITALS: BP 110/58
[2021-02-23 06:00] VITALS: BP 122/75
[2021-02-23] MEDS: IBUPROFEN 800 MG TAB PO PRN ×2 (06:02→13:09)
[2021-02-23] MEDS: PRENATAL VITAMINS CHEWABLE TABLET PO SCH (08:01)
[2021-02-23] MEDS: ACETAMINOPHEN 500 MG TAB PO PRN ×2 (08:04→20:17)
--- NOTE | 2021-02-23 09:15 | IPNPDOC ---
Progress Note Date of Service: Feb 23, 2021 Day#: 1 Progress Note SUBJECT: Gladys is a 20-year-old female who is a who presented to labor and delivery in active labor. She had a vaginal delivery of a living female weighting 5 lbs over an intact perineum. She reports she is , voiding without difficulty, eating a regular diet and ambulating without difficulty. Pain has been managed. OBJECTIVE: VITAL SIGNS: Within normal limits, afebrile. Alert and oriented times three. Sitting up in bed talking on the phone with her friend. Regular rate and rhythm without use of accessory muscles Abdomen: Fundus firm at U. Soft, NTTP. Moderate lochia. ASSESSMENT: Day 1 PLAN: 1. Continue supportive nursing care. 2. Ambulate and shower today. 3. Anticipate discharge to home tomorrow. VS, I&O, 24H, Fishbone Vital Signs/I&O Vital Signs Date Time Temp Pulse Resp B/P (MAP) Pulse Ox O2 Delivery O2 Flow Rate FiO2 02/23/21 06:00 98.7 84 16 122/75 (91) 100 Room Air I&O- Last 24 Hours up to 6 AM 02/23/21 06:00 Intake Total 500 ml Output Total 200 ml Balance 300 ml Laboratory Data 24H LABS Laboratory Tests 2 02/22/21 20:44: Serology Scanned Report Hepatitis B Testing 02/22/21 21:40: Nucleated Red Blood Cells % (auto) 0.0, Syphilis Serology NONREACTIVE, Coronavirus (COVID-19)(PCR) NEGATIVE 02/23/21 03:30: Chlamydia trachomatis DNA (KRISTA) NEGATIVE, Neisseria gonorrhoeae DNA (KRISTA) NEGATIVE CBC/BMP Laboratory Tests 02/22/21 21:40 MADI LEWIS CNM Feb 23, 2021 09:15
[2021-02-23] MEDS ORDERED: IBUP80TA PO (09:17)
[2021-02-23] MEDS ORDERED: ACET-683 PO (09:17)
[2021-02-23] MEDS: LEVOTHYROXINE 25MCG TABLET (0.025MG) PO SCH (11:03)
[2021-02-23 18:03] VITALS: BP 125/87
[2021-02-24 06:00] VITALS: BP 130/84
[2021-02-24] MEDS: LEVOTHYROXINE 25MCG TABLET (0.025MG) PO SCH (06:21)
[2021-02-24] MEDS: PRENATAL VITAMINS CHEWABLE TABLET PO SCH (08:27)
[2021-02-24] MEDS: IBUPROFEN 800 MG TAB PO PRN (08:28)
[2021-02-24] MEDS: ACETAMINOPHEN 500 MG TAB PO PRN (09:03)
[2021-02-24] MEDS: medroxyPROGESTERone ACET IM SUSP 150 MG/ML VIAL (J1050) IM ONE ×2 (11:23→11:37)
== END 2021-02-24 11:50 | disposition home or self-care (01) | DRG 560 ==
LOC: M LDI 20:39 → M OBS 02-23 00:05
PROVIDERS: ADMIT Advanced Practice Midwife; ATTEND Advanced Practice Midwife
PROC: 10E0XZZ Delivery of Products of Conception, External Approach (ICD-10-PCS; principal; 2021-02-22)
DX: O36.5990 Maternal care for other known or suspected poor fetal growth, unspecified trimester, not applicable or unspecified (principal); O99.42 Diseases of the circulatory system complicating childbirth; Z37.0 Single live birth; Z3A.38 38 weeks gestation of pregnancy; O99.824 Streptococcus B carrier state complicating childbirth; E03.9 Hypothyroidism, unspecified; O99.284 Endocrine, nutritional and metabolic diseases complicating childbirth; O09.30 Supervision of pregnancy with insufficient antenatal care, unspecified trimester; Z91.19 Patient's noncompliance with other medical treatment and regimen; I44.0 Atrioventricular block, first degree

== ENCOUNTER 2021-03-13 13:30 | Emergency (ER) | payer BC, SELFPAY ==
[~2021-03-13] VITALS: Ht 162.6 cm; Wt 53.2 kg
[~2021-03-13 13:30] MED LIST changes: +ACET-683 PO
[2021-03-13] MEDS ORDERED: ANUS2.5C2 TOP (16:52)
[2021-03-13] MEDS ORDERED: MIRA3350 PO (16:52)
[2021-03-13] MEDS ORDERED: PROC1AER16 PR (16:52)
[2021-03-13] MEDS ORDERED: MM S100C PO (16:52)
[2021-03-13 17:00] VITALS: BP 112/61
== END 2021-03-13 17:01 | disposition home or self-care (01) ==
LOC: M ED 13:30
DX: K64.9 Unspecified hemorrhoids (principal); K62.5 Hemorrhage of anus and rectum; Z88.0 Allergy status to penicillin

== ENCOUNTER 2021-08-08 13:56 | Emergency (ER) | payer BC ==
[~2021-08-08] VITALS: Ht 162.6 cm; Wt 54.5 kg
[~2021-08-08 13:56] MED LIST changes: +MIRA3350 PO; +PROC1AER16 PR
[2021-08-08 16:26] VITALS: BP 122/82
== END 2021-08-08 16:25 | disposition home or self-care (01) ==
LOC: M ED 13:56
DX: F32.A Depression, unspecified (principal); D64.9 Anemia, unspecified; F17.200 Nicotine dependence, unspecified, uncomplicated; Z88.0 Allergy status to penicillin

== ENCOUNTER → 2021-12-25 | Outpatient (REF) | payer BC ==
[~2021-12-25] MED LIST changes: +ETON68IM; -NEXP1IMP
[2021-12-25 19:12] LABS: APPEARANCE, URINE MANUAL CLEAR (CLEAR); BILIRUBIN, URINE MANUAL NEGATIVE (NEGATIVE); COLOR, URINE MANUAL YELLOW (YELLOW); GLUCOSE, URINE (UA) MANUAL NEGATIVE (NEGATIVE); KETONE, URINE MANUAL 2+ mg/dL (NEGATIVE); PROTEIN, URINE MANUAL TRACE mg/dL (NEGATIVE); UROBILINOGEN, URINE MANUAL NORMAL (NORMAL)
[2021-12-25 19:13] LABS: BLOOD URINE MANUAL TRACE (NEGATIVE); LEUKOCYTE ESTERASE, URINE MAN TRACE (NEGATIVE); NITRITE, URINE MANUAL NEGATIVE (NEGATIVE)
[2021-12-25 19:14] LABS: URINE PREG TEST NEGATIVE (NEGATIVE)
[2021-12-25 19:41] LABS: BACTERIA, URINE LARGE AMOUNT; MUCUS, URINE LARGE AMOUNT (NEGATIVE); RBC, URINE 0-1 /hpf (0-3); SQUAMOUS EPITHELIAL CELL URINE LARGE AMOUNT /hpf (SMALL AMT)
[2021-12-25 21:41] LABS: GC DNA AMPLIFICATION NEGATIVE (NEGATIVE)
== END ==
LOC: M LAB REF 18:41
PROVIDERS: ATTEND Physician Assistant Medical
DX: Z20.2 Contact with and (suspected) exposure to infections with a predominantly sexual mode of transmission (principal); N39.0 Urinary tract infection, site not specified

== ENCOUNTER 2022-01-23 04:28 | Emergency (ER) | payer BC ==
[2022-01-23] MEDS ORDERED: PERCOCET 5MG/325MG TAB PO ONE ×2 (08:00→09:45)
[2022-01-23] MEDS ORDERED: ISOVUE-370 76% 100ML VIAL As Ordered ONE (08:12)
[2022-01-23 08:59] LABS: BASO % 0.1 % (0.0-1.0); EOS % 0.3 % (0.0-3.0); HEMATOCRIT 38.5 % (36.0-47.0); HEMOGLOBIN 12.6 g/dl (12.0-15.5); LYMPH # 2.3 10^3/uL (1.5-5.0); LYMPH % 28.8 % (24.0-44.0); MEAN CORPUSCULAR HEMOGLOBIN 29.5 pg (27.0-33.0); MEAN CORPUSCULAR HGB CONC 32.7 g/dl (32.0-36.5); MEAN CORPUSCULAR VOLUME 90.2 fl (80.0-96.0); MONO # 0.5 10^3/uL (0.0-0.8); MONO % 6.1 % (2.0-8.0); NEUTROPHILS # 5.1 10^3/uL (1.5-8.5); NEUTROPHILS % 64.2 % (36.0-66.0); PLATELET COUNT, AUTOMATED 227 10^3/uL (150-450); RED BLOOD COUNT 4.27 10^6/uL (4.00-5.40); WHITE BLOOD COUNT 7.9 10^3/uL (4.0-10.0)
[2022-01-23] MEDS ORDERED: NS 500 ML IV ONE ×2 (09:20→12:30)
[2022-01-23 09:36] LABS: ACETAMINOPHEN LEVEL < 2.0 UG/ML (10.0-30.0); ALBUMIN 4.1 GM/DL (3.2-5.2); ALT/SGPT 17 U/L (12-78); BILIRUBIN,DIRECT < 0.1 MG/DL (0.0-0.2); BILIRUBIN,TOTAL 0.3 MG/DL (0.2-1.0); BLOOD UREA NITROGEN 12 MG/DL (7-18); CARBON DIOXIDE LEVEL 22 MEQ/L (21-32); CHLORIDE LEVEL 108 MEQ/L (98-107); CREATININE FOR GFR 0.73 MG/DL (0.55-1.30); ETHYL ALCOHOL (ETHANOL) < 0.003 % (0.000-0.010); GLOMERULAR FILTRATION RATE > 60.0 (>60); GLUCOSE, FASTING 106 MG/DL (70-100); POTASSIUM SERUM 4.2 MEQ/L (3.5-5.1); SALICYLATE LEVEL 4.4 MG/DL (5.0-30.0); SODIUM LEVEL 135 MEQ/L (136-145); TOTAL PROTEIN 7.5 GM/DL (6.4-8.2)
[2022-01-23 09:37] LABS: AMPHETAMINES LEVEL URINE NEGATIVE (NEGATIVE); BARBITURATES URINE NEGATIVE (NEGATIVE); BENZODIAZEPINES URINE NEGATIVE (NEGATIVE); CANNABINOIDS URINE POSITIVE (NEGATIVE); COCAINE METABOLITE URINE NEGATIVE (NEGATIVE); METHADONE URINE NEGATIVE (NEGATIVE); OPIATES URINE NEGATIVE (NEGATIVE); PHENCYCLIDINE URINE NEGATIVE (NEGATIVE)
[2022-01-23 09:51] LABS: GC DNA AMPLIFICATION NEGATIVE (NEGATIVE)
[2022-01-23 10:26] LABS: RSV AMPLIFICATION NEGATIVE (NEGATIVE)
[2022-01-23] MEDS ORDERED: ONDANSETRON 4MG 2ML VIAL As Ordered ONE (11:39)
[2022-01-23] MEDS ORDERED: ONDANSETRON 4MG 2ML VIAL IV ONE ×2 (11:40→12:30)
[2022-01-23] MEDS ORDERED: ONDANSETRON 4MG ORAL DISINTEGRATING TAB PO ONE (13:30)
[2022-01-23] MEDS ORDERED: WOMETAB PO (14:40)
[2022-01-23] MEDS ORDERED: HOME MED LIST COMPLETE! XX SCH (14:40)
[2022-01-23] MEDS: DOXYCYCLINE HYCLATE 100MG TABLET PO SCH (22:26)
[2022-01-23] MEDS ORDERED: diphenhydrAMINE 25MG CAP PO ONE (22:35)
[2022-01-24] MEDS ORDERED: PERCOCET 5MG/325MG TAB PO ONE (02:35)
[2022-01-24] MEDS ORDERED: MULTIVITAMINS/MINERALS THERAP 1 TAB PO SCH (09:00)
[2022-01-24] MEDS: DOXYCYCLINE HYCLATE 100MG TABLET PO SCH (09:21)
[2022-01-24] MEDS ORDERED: ACETAMINOPHEN 325 MG TAB PO ONE (10:05)
[2022-01-24 11:00] LABS: HEPATITIS B SURFACE ANTIBODY NEGATIVE (POSITIVE); HEPATITIS B SURFACE ANTIGEN NEGATIVE (NEGATIVE); HEPATITIS C VIRUS ABY INDEX 0.2 INDEX (<0.8); HIV 1&2 SCREEN CENTAUR NEGATIVE (NEGATIVE)
[2022-01-24] MEDS ORDERED: DOXY-443 PO (15:28)
[2022-01-24 15:37] VITALS: BP 119/81
== END 2022-01-24 16:51 | disposition home or self-care (01) ==
LOC: M ED 04:28
DX: F43.21 Adjustment disorder with depressed mood (principal); A74.9 Chlamydial infection, unspecified; Y04.0XXA Assault by unarmed brawl or fight, initial encounter; Z88.0 Allergy status to penicillin
CPT/HCPCS: 70450; 74177; 80048; 80076; 80143; 80307; 81000; 81015; 82077; 84443; 84702; 85025; 86706; 86780; 86803; 87340; 87389; 87631; 87661; 87810; 87850; 96374; 96376; 99284; J2405

== ENCOUNTER 2022-04-09 13:19 | Emergency (ER) | payer BC ==
[~2022-04-09] VITALS: Ht 162.6 cm; Wt 53.6 kg
[~2022-04-09 13:19] MED LIST changes: +DOXY-443 PO; +WOMETAB PO
[2022-04-09] MEDS ORDERED: BENA25CA4 PO (13:56)
[2022-04-09] MEDS ORDERED: ACET-683 PO (13:56)
[2022-04-09 14:32] LABS: BASO % 0.1 % (0.0-1.0); HEMATOCRIT 41.2 % (36.0-47.0); HEMOGLOBIN 13.4 g/dl (12.0-15.5); LYMPH # 1.9 10^3/uL (1.5-5.0); LYMPH % 15.4 % (24.0-44.0); MEAN CORPUSCULAR HEMOGLOBIN 29.3 pg (27.0-33.0); MEAN CORPUSCULAR HGB CONC 32.5 g/dl (32.0-36.5); MONO # 1.4 10^3/uL (0.0-0.8); NEUTROPHILS % 73.2 % (36.0-66.0); PLATELET COUNT, AUTOMATED 178 10^3/uL (150-450); RED BLOOD COUNT 4.58 10^6/uL (4.00-5.40); WHITE BLOOD COUNT 12.3 10^3/uL (4.0-10.0)
[2022-04-09] MEDS ORDERED: LIDOCAINE 5% (LIDODERM) PATCH TD ONE (14:50)
[2022-04-09] MEDS ORDERED: KETOROLAC 30 MG/ML 1ML VIAL IV ONE (14:50)
[2022-04-09] MEDS ORDERED: diazePAM 10MG/2ML SYRINGE IV ONE (14:50)
[2022-04-09] MEDS ORDERED: ISOVUE-370 76% 100ML VIAL As Ordered ONE (14:55)
[2022-04-09 15:05] LABS: BILIRUBIN,DIRECT 0.3 MG/DL (<0.4); BILIRUBIN,TOTAL 0.7 MG/DL (0.3-1.2); TOTAL PROTEIN 7.9 G/DL (5.7-8.2)
[2022-04-09] MEDS ORDERED: ONDANSETRON 4MG 2ML VIAL As Ordered ONE (15:11)
[2022-04-09] MEDS ORDERED: ONDANSETRON 4MG 2ML VIAL IV ONE (15:15)
[2022-04-09 19:33] LABS: GC DNA AMPLIFICATION NEGATIVE (NEGATIVE)
[2022-04-09] MEDS ORDERED: CIPR-249 PO (19:45)
[2022-04-09 19:55] VITALS: BP 116/60
== END 2022-04-09 20:05 | disposition home or self-care (01) ==
LOC: M ED 13:19
DX: N39.0 Urinary tract infection, site not specified (principal); I10 Essential (primary) hypertension; G40.909 Epilepsy, unspecified, not intractable, without status epilepticus; Z88.0 Allergy status to penicillin; Z79.1 Long term (current) use of non-steroidal anti-inflammatories (NSAID); Z79.899 Other long term (current) drug therapy
CPT/HCPCS: 36415; 74177; 80047; 80076; 81000; 81015; 83690; 84702; 85025; 87088; 87186; 87210; 87661; 87810; 87850; 96374; 96375; 99284; J1885; J2405; J3360

== ENCOUNTER → 2022-06-06 | Outpatient (CLI) | payer BC ==
[~2022-06-06] MED LIST changes: +BENA25CA4 PO; +CIPR-249 PO
== END ==
LOC: M WHC 12:08
PROVIDERS: ATTEND Physician Assistant Medical
DX: Z12.31 Encounter for screening mammogram for malignant neoplasm of breast (principal); N63.13 Unspecified lump in the right breast, lower outer quadrant; N63.22 Unspecified lump in the left breast, upper inner quadrant

== ENCOUNTER → 2023-04-26 | Outpatient (REF) | payer BC ==
[~2023-04-26] MED LIST changes: +CIPR0.3S37 OP; -CIPR0.3S6 OP; -HYDR200T3 PO; +HYDR200T46 PO
[2023-04-26 17:12] LABS: APPEARANCE, URINE HAZY (CLEAR); BACTERIA, URINE AUTO NEGATIVE (NEGATIVE); BILIRUBIN, URINE AUTO NEGATIVE (NEGATIVE); BLOOD, URINE BLOOD NEGATIVE (NEGATIVE); COLOR, URINE YELLOW (YELLOW); GLUCOSE, URINE (UA) AUTO NEGATIVE (NEGATIVE); KETONE, URINE AUTO 1+ mg/dL (NEGATIVE); LEUKOCYTE ESTERASE, URINE AUTO NEGATIVE (NEGATIVE); MUCUS, URINE MODERATE (NEGATIVE); NITRITE, URINE AUTO NEGATIVE (NEGATIVE); PROTEIN, URINE AUTO 1+ mg/dL (NEGATIVE); RBC, URINE AUTO 0 /HPF (0-3); SPECIFIC GRAVITY URINE AUTO 1.027 (1.002-1.035); SQUAMOUS EPITHELIAL CELL UR AU 23 /HPF (0-6); UROBILINOGEN, URINE AUTO 0.2 mg/dL (0.0-2.0); WBC, URINE AUTO 0 /HPF (0-3)
[2023-04-26 18:47] LABS: THYROID STIMULATING HORMONE 2.068 uIU/ML (0.55-4.78)
[2023-04-26 18:48] LABS: BLOOD UREA NITROGEN 12 MG/DL (9-23); CALCIUM LEVEL 8.7 MG/DL (8.5-10.1); CARBON DIOXIDE LEVEL 25 MMOL/L (20-31); CHLORIDE LEVEL 109 MMOL/L (98-107); CREATININE FOR GFR 0.72 MG/DL (0.55-1.30); GLOMERULAR FILTRATION RATE > 60.0 (>60); GLUCOSE, FASTING 80 MG/DL (60-100); POTASSIUM SERUM 4.4 MMOL/L (3.5-5.1); SODIUM LEVEL 139 MMOL/L (136-145)
== END ==
LOC: M LAB REF 16:17
PROVIDERS: ATTEND Physician Assistant
DX: R32 Unspecified urinary incontinence (principal); R19.09 Other intra-abdominal and pelvic swelling, mass and lump; F32.A Depression, unspecified; Z91.410 Personal history of adult physical and sexual abuse; Z62.810 Personal history of physical and sexual abuse in childhood